=== PATIENT | female | born 1995 | race Caucasian/White ===

== ENCOUNTER 2020-09-18 09:43 | Day surgery (SDC) | payer BC ==
[~2020-09-18] VITALS: Ht 170.2 cm; Wt 60.8 kg
[~2020-09-18 09:43] MED LIST: VYVANSE60 MG PO
[2020-09-18 10:52] VITALS: BP 112/53; Ht 170.2 cm; Wt 60.8 kg
[2020-09-18 11:35] LABS: HEMATOCRIT 39.8 % (36.0-48.0); HEMOGLOBIN 13.4 g/dL (12-16); MCH 32.1 pg (26.0-34.0); MCHC 33.7 g/dL (31.0-37.0); MCV 95.2 fL (80.0-100.0); MEAN PLATELET VOLUME 10.4 fL (7.4-10.4); RBC 4.18 10x6/uL (4.00-5.40); RDW 11.8 % (11.5-14.5); WBC 5.9 10x3/uL (4.8-10.8)
[2020-09-18 11:39] LABS: HCG URINE NEGATIVE (NEGATIVE)
[2020-09-18 11:55] LABS: HCG SERUM NEGATIVE (NEGATIVE)
[2020-09-18] MEDS ORDERED: VISTARIL50 MG PO (14:46)
[2020-09-18] MEDS ORDERED: PERCOCET 10-321 EAC1 PO (14:46)
[2020-09-18] MEDS ORDERED: ZOFRAN ODT4 MG/UDTAB PO (14:46)
--- NOTE | 2020-09-19 07:09 | OP ---
PATIENT NAME: THEE ZUNIGA MEDICAL RECORD: [id number] :89 LOCATION:[facility] ADMISSION DATE: SURGEON: MAYANK BUCK DO DATE OF OPERATION: 09/18/2020 PROCEDURE PERFORMED: Right distal radius open reduction internal fixation. PREOPERATIVE DIAGNOSIS: Right distal radius intra-articular fracture. POSTOPERATIVE DIAGNOSIS: Right distal radius intra-articular fracture. INDICATIONS: Ms. Zuniga is a 24-year-old female who sustained a right distal radius intra-articular fracture when she was rollerskating pushed down and did fall on outstretched hand. She had x-rays and CT showed an intra-articular comminuted fracture of the distal radius with dorsal comminution. I informed her and her father in clinic yesterday that due to the severity of the comminution and the intra-articular portion of that she needed to have it fixed and that she would be at risk for infection, bleeding, damage to nerves and vessels in the area, malunion, nonunion, continued pain, loss of motion of the wrist, blood, clots and even and she signed the consent. SURGEON: Mayank Buck DO DESCRIPTION OF PROCEDURE: The patient received a block by anesthesia in the preoperative area, given a gram of Ancef preoperatively, taken to the operative suite, laid in supine position and general anesthetic and LMA was placed. The right upper extremity was then prepped and draped in sterile fashion. A timeout was performed and everyone was in agreement with correct side, site, patient and procedure. I then began by marking the right upper extremity and exsanguinated and the tourniquet was inflated to 250 mmHg, was up for 25 minutes. I made an incision over the skin over the flexor carpi radialis tendon and made careful dissection down to the pronator quadratus, peeled it off the distal radius and reduced the fracture by putting a pin through the styloid and reducing the intra-articular pieces of the fracture, then put on the plate, Acumed plate, and once it was in adequate position and lined up well, I put a shaft screw in the oblong hole and filled the plate just slightly more felt to be in good position and then put distal locking screws and 2 screws into the radial styloid using 1 cortical and then changed out for a locking. I then put 2 more screws into the plate. Cortical screws in the shaft. The tourniquet was then let down and bleeding was coagulated with a pickup and Bovie. She was then irrigated. Claudio Lee certified pest control technician then closed the skin with 3-0 Vicryl in an inverted interrupted fashion and put Prineo glue on the skin. She was then dressed with Adaptic, 4 x 4s, cast padding, and placed a volar splint and held secured in place with an Bhargav wrap. She was then awakened and taken to recovery in stable condition. BLOOD LOSS: Minimal. COMPLICATIONS: None. TRANSINT:[id number] Voice Confirmation ID: [id number] DOCUMENT ID: [id number] OPERATIVE REPORT [id number] THEE ZUNIGA MICHAEL D, DO at 0709 CC: [id number] DICTATION DATE: 09/18/20 1548 CHEMIST ENZYMES: 09/19/20 0032 [facility] 09/18/20 [id number] [place] [address]
== END 2020-09-18 17:45 | disposition home or self-care (01) ==
LOC: D.OPS 09:43
PROVIDERS: Anesthesiology; ATTEND Orthopaedic Surgery
DX: S52.571A Other intraarticular fracture of lower end of right radius, initial encounter for closed fracture (principal); X58.XXXA Exposure to other specified factors, initial encounter; M25.531 Pain in right wrist